=== PATIENT | male | born 1975 | race Caucasian/White ===

== ENCOUNTER 2023-10-06 11:24 | Day surgery (SDC) | payer OTHER ==
[~2023-10-06] VITALS: Ht 175.3 cm; Wt 120.4 kg
[~2023-10-06 11:24] MED LIST: LR 1,000 ML IV SCH; NO HOME MEDICATIONS
[2023-10-06] MEDS ORDERED: ELIQUIS 5MG PO (11:57)
[2023-10-06] MEDS ORDERED: ZEPBOUND7.5 MG/0.5 SQ (11:58)
[2023-10-06] MEDS ORDERED: COMPLETE MULTI1 TAB PO (11:58)
[2023-10-06] MEDS ORDERED: PROBIOTIC BLEN1 EACH PO (11:59)
[2023-10-06] MEDS ORDERED: MOBIC 7.5MG7.5 MG PO (11:59)
[2023-10-06] MEDS ORDERED: Rocuronium 50 MG/5 ML Multi-Dose VIAL ONE (12:09)
[2023-10-06] MEDS ORDERED: fentaNYL 50 MCG/ML 5 ML VIAL ONE (12:09)
[2023-10-06] MEDS ORDERED: Glycopyrrolate 0.2 MG/ML 1 ML VIAL ONE (12:10)
[2023-10-06] MEDS ORDERED: NS 10 ML IV ONE (12:10)
[2023-10-06] MEDS ORDERED: dexAMETHasone 10 MG/ML VIAL ONE (12:10)
[2023-10-06] MEDS ORDERED: Ketorolac 30 MG/ML VIAL ONE (12:10)
[2023-10-06] MEDS ORDERED: Lidocaine PF 2% (20 MG/ML) 5 ML VIAL ONE (12:10)
[2023-10-06] MEDS ORDERED: Ondansetron 4 MG/2 ML VIAL ONE (12:10)
[2023-10-06] MEDS ORDERED: Midazolam 2 MG/2 ML VIAL ONE (12:13)
[2023-10-06 12:34] VITALS: BP 126/70; PULSE 55; TEMP 97.7
--- NOTE | 2023-10-06 12:50 | NUR ---
Patient Admission: 1139 Patient ambulatory to bay 6 with steady gait, breathing even and unlabored. Pt is alert and oriented, accompanied by his . Consents reviewed and signed by the patient. IV established. LR infusion via gravity at K[facility]. Call light in reach. Warm blanket provided..
[2023-10-06] MEDS ORDERED: Topical Skin Adhesive 1 EACH (1 ML) TOP ONE (13:00)
[2023-10-06] MEDS ORDERED: fentaNYL 50 MCG/ML 2 ML VIAL ONE ×2 (14:44→15:46)
[2023-10-06] MEDS ORDERED: fentaNYL 50 MCG/ML 1 ML SYRINGE/VIAL [PACU/SDC ONLY] IV PRN (15:30)
[2023-10-06] MEDS ORDERED: droPERidol 2.5 MG/ML 2 ML VIAL IV PRN (15:30)
[2023-10-06] MEDS ORDERED: hydrALAZINE 20 MG/ML 1 ML VIAL IV PRN (15:30)
[2023-10-06] MEDS ORDERED: HYDROmorphone 1 MG/1 ML SYRINGE [PACU/SDC ONLY] IV PRN (15:30)
[2023-10-06] MEDS ORDERED: Ondansetron 4 MG/2 ML VIAL IV PRN ×2 (15:30→17:00)
[2023-10-06] MEDS ORDERED: LR 1,000 ML IV ONE (15:38)
[2023-10-06] MEDS ORDERED: NORCO 325 MG-51 TAB PO (16:03)
[2023-10-06] MEDS ORDERED: MOTRIN 600600 MG/TAB PO (16:04)
[2023-10-06] MEDS ORDERED: Ibuprofen 600 MG TAB PO PRN ×2 (16:15→17:00)
[2023-10-06 16:35] VITALS: BP 126/73; PULSE 63; TEMP 97.3
[2023-10-06 16:45] VITALS: BP 124/71; PULSE 60
[2023-10-06 17:00] VITALS: BP 128/64; PULSE 58
[2023-10-06] MEDS ORDERED: Morphine 4 MG/ML VIAL IV PRN (17:00)
--- NOTE | 2023-10-06 17:45 | NUR ---
1629 Received report from BRANDON Rodriguez. 1635 Patient returned to bay 6. Patient is alert and answers questions appropriately. 1640 Patient given cranberry juice for a PO challenge. Tolerated well. Physician discharge instructions and printed patient educational materials reviewed with the patient and his . Questions invited and answered. 1730 Patient to lobby via wheelchair for a ride home with in POV.
== END 2023-10-06 17:30 | disposition home or self-care (01) ==
LOC: SDCO 11:24
DX: K43.9 Ventral hernia without obstruction or gangrene (principal); K42.9 Umbilical hernia without obstruction or gangrene; E66.9 Obesity, unspecified; G47.33 Obstructive sleep apnea (adult) (pediatric); Z68.36 Body mass index [BMI] 36.0-36.9, adult; Z79.01 Long term (current) use of anticoagulants; Z86.718 Personal history of other venous thrombosis and embolism
CPT/HCPCS: C1781; J0690; J1100; J1885; J2250; J2405; J2704; J2795; J3010; J7120